=== PATIENT | female | born 1995 | race African-American/Black ===

== ENCOUNTER 2025-07-29 19:53 | Emergency (ER) | payer OTHER ==
[~2025-07-29] VITALS: Ht 165.1 cm; Wt 81.6 kg
[2025-07-29] MEDS ORDERED: KETOROLAC TROMETHAMINE 30 MG/ML VIAL ONE (20:29)
[2025-07-29] MEDS ORDERED: METOCLOPRAMIDE HCL 10 MG/2ML VIAL ONE (20:29)
[2025-07-29 21:12] LABS: CORONAVIRUS COVID-19 AG NEGATIVE (NEGATIVE)
[2025-07-29 21:15] VITALS: TEMP 98.4
[2025-07-29] MEDS: KETOROLAC TROMETHAMINE 60 MG/2 ML VIAL IM STA (21:26)
[2025-07-29] MEDS: METOCLOPRAMIDE HCL 10 MG/2ML VIAL IM STA (21:26)
[2025-07-29] MEDS ORDERED: ONDANSETRON HCL INJ 2MG/ML 2ML 2 MG/ML VIAL ONE (21:47)
[2025-07-29] MEDS: SODIUM CHLORIDE 0.9% 1000ML 1,000 ML IV STA (21:55)
[2025-07-29] MEDS: ONDANSETRON HCL INJ 2MG/ML 2ML 2 MG/ML VIAL IV STA (21:55)
[2025-07-29 22:06] LABS: BASOPHILS % 0.3 % (0.0-1.0); EOSINOPHILS % 1.8 % (0.0-6.0); LYMPHOCYTES % 2.9 % (18.0-39.1); MONOCYTES % 9.8 % (4.4-11.3); NEUTROPHILS % 84.8 % (38.7-80.0); RED CELL DISTRIBUTION WIDTH 14.2 % (11.7-14.4)
[2025-07-29 22:28] LABS: EST GLOMERULAR FILTRATION RATE 119.0 ML/MIN (>=60)
[2025-07-29] MEDS: Morphine 4mg INJECTION 4 MG/ML INJ IV STA (23:34)
[2025-07-30 00:23] VITALS: PULSE 78; RESP 17
[2025-07-30 00:29] LABS: PREGNANCY TEST, URINE NEGATIVE (NEGATIVE)
[2025-07-30 00:37] LABS: LEUKOCYTE ESTERASE ,URINE NEGATIVE (NEGATIVE); PROTEIN,URINE DIPSTICK NEGATIVE (NEGATIVE); URINE UROBILINOGEN 0.2 mg/dL (0.2 - 1)
[2025-07-30 00:41] LABS: EPITHELIAL CELLS,URINE MANY /LPF; WBC,URINE (MAN) 21-50 /HPF (0-5)
[2025-07-30] MEDS ORDERED: KETOROLAC TROME10 MG PO (02:07)
[2025-07-30 02:09] VITALS: BP 115/62; PULSE 71; RESP 18; O2SAT 100
[2025-07-31] MEDS ORDERED: IBUPROFEN600 MG PO (12:10)
[2025-07-31] MEDS ORDERED: TYLENOL325 MG PO (12:10)
[2025-07-31] MEDS ORDERED: DIPHENHYDRAMINE25 M2 PO (12:10)
== END 2025-07-30 02:13 | disposition home or self-care (01) ==
LOC: ER 20:04
DX: R51.9 Headache, unspecified (principal); M54.50 Low back pain, unspecified; M79.605 Pain in left leg; M79.604 Pain in right leg; R11.2 Nausea with vomiting, unspecified; N85.2 Hypertrophy of uterus; R53.81 Other malaise; Z11.52 Encounter for screening for COVID-19
CPT/HCPCS: 36415; 74176; 80053; 81001; 81025; 83518; 83690; 84702; 85025; 87426; 99284; J1885; J2270; J2405; J2765; J7030

== ENCOUNTER 2025-07-31 11:29 | Emergency (ER) | payer MEDICAID, OTHER ==
[~2025-07-31] VITALS: Ht 165.1 cm; Wt 80.5 kg
[~2025-07-31 11:29] MED LIST: KETOROLAC TROME10 MG PO
[2025-07-31 11:30] VITALS: PULSE 72; RESP 18; TEMP 98; O2SAT 98
[2025-07-31] MEDS ORDERED: IBUPROFEN600 MG PO (12:10)
[2025-07-31] MEDS ORDERED: TYLENOL325 MG PO (12:10)
[2025-07-31] MEDS ORDERED: DIPHENHYDRAMINE25 M2 PO (12:10)
== END 2025-07-31 12:25 | disposition home or self-care (01) ==
LOC: FSED 11:34
DX: R51.9 Headache, unspecified (principal); U07.1 COVID-19; J06.9 Acute upper respiratory infection, unspecified; R05.9 Cough, unspecified; R53.81 Other malaise
CPT/HCPCS: 0223U; 83518; 87400; 99284